=== PATIENT | female | born 1990 | race Hispanic/Latino ===

== ENCOUNTER 2017-05-14 21:15 | Emergency (ER) | payer OTHER ==
[~2017-05-14] VITALS: Ht 167.6 cm; Wt 84.1 kg
[~2017-05-14 21:15] MED LIST: CIPRO500 MG PO; DICYCLOMINE HCL10 MG PO; DOCUSATE SODIU100 MG PO; ENDOCET 5-3251 EACH PO; IBUPROFEN800 MG PO; IMODIUM MS REL1 EACH PO; LOMOTIL TABLET1 EACH PO; LOVENOX40 MG/0.4 SC; MICRONOR0.35 MG PO; Motrin PO; NEXIUM40 MG PO; NOHOMEMEDS; PEPCID20 MG PO; PHENERGAN25 MG PR; PRENATAL TABLE1 EACH PO; PROMETHAZINE HC25 M1 PO; PROTONIX20 MG PO; PROTONIX40 MG PO; REGLAN10 MG PO; SUCRALFATE1 GM PO; TRAMADOL HCL50 MG PO; ULTRAM50 MG PO; VITAMIN D1000 INTUN PO; ZANTAC150 MG PO; ZOFRAN ODT4 MG PO; ZOFRAN ODT8 MG PO; ZOFRAN4 MG PO
[2017-05-14 22:00] LABS: HEMATOCRIT 38.1 % (36.0-46.0); MCH 28.9 PG (29.0-34.0); MCHC 32.3 G/DL (30.0-36.0); MCV 89.6 FL (83-99); PLATELET COUNT 354 K/uL (156-360); RBC DIS.WIDTH-SD 49.4 % (39-53); RED BLOOD COUNT 4.25 M/uL (3.80-5.20)
[2017-05-14 22:08] LABS: CHLORIDE 106 mEq/L (99-109); POTASSIUM 3.2 mEq/L (3.7-5.4); SODIUM 138 mEq/L (136-147)
[2017-05-14 22:10] LABS: GLUCOSE 83 mg/dL (70-99)
[2017-05-14 22:12] LABS: ANION GAP 11 MEQ/L (2-14)
[2017-05-14 22:14] LABS: GFR ESTIMATE (CALCULATED) > 59 mL/min/
[2017-05-14 22:15] LABS: UREA NITROGEN (BUN) 9 mg/dL (9-23)
[2017-05-14 22:20] LABS: TROP-I INTERPRETATION NEGATIVE; TROPONIN-I < 0.01 ng/mL (0.0-0.30)
[2017-05-14 22:56] LABS: QUANTITATIVE HCG 1110.3 MIU/ML
[2017-05-14] MEDS ORDERED: PROAIR HFA8.5 GM IH (23:03)
[2017-05-14] MEDS ORDERED: ZOFRAN ODT4 MG PO (23:03)
[2017-05-14] MEDS ORDERED: PRENATAL TABLE1 EAC3 PO (23:03)
[2017-05-14 23:43] VITALS: BP 101/68
== END 2017-05-14 23:45 | disposition home or self-care (01) ==
LOC: EME 21:15
DX: O26.891 Other specified pregnancy related conditions, first trimester (principal); J20.9 Acute bronchitis, unspecified; J45.909 Unspecified asthma, uncomplicated; Z3A.00 Weeks of gestation of pregnancy not specified; Z87.891 Personal history of nicotine dependence
CPT/HCPCS: 71020; 80048; 84484; 84702; 85027; 87651 90; 93005; 94640; 99281; 99284; J7512

== ENCOUNTER 2017-05-16 23:55 | Emergency (ER) | payer OTHER ==
[~2017-05-16] VITALS: Ht 167.6 cm; Wt 80.4 kg
[~2017-05-16 23:55] MED LIST changes: +PRENATAL TABLE1 EAC3 PO; +PROAIR HFA8.5 GM IH
[2017-05-17 01:37] LABS: EOSINOPHIL (%) 0.2 % (0-5); HEMATOCRIT 39.9 % (36.0-46.0); IMMATURE GRANULOCYTE (%) 0.4 % (0.0-0.7); LYMPHOCYTE COUNT 1.5 K/uL (1.0-2.8); MCH 28.4 PG (29.0-34.0); MCHC 32.1 G/DL (30.0-36.0); MCV 88.5 FL (83-99); MEAN PLAT.VOLUME 9.9 uM^3 (9.5-12.4); MONOCYTE (%) 9.5 % (3-12); MONOCYTE COUNT 0.8 K/uL (0-0.8); NEUTROPHIL (%) 71.9 % (45-76); PLATELET COUNT 405 K/uL (156-360); RBC DIS.WIDTH-CV 14.8 % (11.8-14.6); RBC DIS.WIDTH-SD 47.8 % (39-53); RED BLOOD COUNT 4.51 M/uL (3.80-5.20); WHITE BLOOD COUNT 8.4 K/uL (4.1-10.2)
[2017-05-17 01:54] LABS: CHLORIDE 101 mEq/L (99-109); POTASSIUM 3.1 mEq/L (3.7-5.4); SODIUM 139 mEq/L (136-147)
[2017-05-17 01:56] LABS: GLUCOSE 102 mg/dL (70-99)
[2017-05-17 01:57] LABS: ANION GAP 12 MEQ/L (2-14)
[2017-05-17 01:58] LABS: TOTAL BILIRUBIN 1.7 mg/dL (0.0-1.0)
[2017-05-17 02:00] LABS: ALKALINE PHOSPHATASE 53 IU/L (3-129); GFR ESTIMATE (CALCULATED) > 59 mL/min/
[2017-05-17 02:01] LABS: UREA NITROGEN (BUN) 18 mg/dL (9-23)
[2017-05-17 02:02] LABS: DIRECT BILIRUBIN 0.5 mg/dL (0.0-0.3)
[2017-05-17 02:03] LABS: LIPASE 9 U/L (1.0-51.0)
[2017-05-17 02:12] LABS: QUANTITATIVE HCG 2278.2 MIU/ML
[2017-05-17 02:41] LABS: ADD MIUA? YES; BILIRUBIN SMALL; BLOOD NEGATIVE; COLOR AMBER ((YELLOW)); GLUCOSE (STRIP) NEGATIVE; KETONES 5; LEUKOCYTES NEGATIVE; NITRITE NEGATIVE; PROTEIN (STRIP) 100; SPECIFIC GRAVITY 1.033 (1.000-1.030)
[2017-05-17 02:48] LABS: BACTERIA 2+ /HPF; EPITHELIAL CELLS 1+ /HPF; HYALINE CASTS 20-30 /LPF; MUCUS 4+ /LPF; UCUL ADDED? YES
[2017-05-17] MEDS ORDERED: ZOFRAN4 MG PO (03:24)
[2017-05-17] MEDS ORDERED: MACROBID100 MG PO (04:16)
[2017-05-17 05:30] VITALS: BP 113/70
== END 2017-05-17 06:16 | disposition home or self-care (01) ==
LOC: EME 23:55
PROVIDERS: Emergency Medicine
DX: O99.89 Other specified diseases and conditions complicating pregnancy, childbirth and the puerperium (principal); R10.12 Left upper quadrant pain; O21.1 Hyperemesis gravidarum with metabolic disturbance; E86.0 Dehydration; E87.6 Hypokalemia; O99.511 Diseases of the respiratory system complicating pregnancy, first trimester; J45.909 Unspecified asthma, uncomplicated; Z3A.01 Less than 8 weeks gestation of pregnancy; Z87.891 Personal history of nicotine dependence
CPT/HCPCS: 80048; 80076; 81003; 83690; 84702; 85025; 87086; 99281; 99285; J1200; J2405; J2765; J3480; J7030

== ENCOUNTER 2018-01-06 16:17 | Inpatient (IN) | payer OTHER ==
[~2018-01-06] VITALS: Ht 167.6 cm; Wt 83.9 kg
[2018-01-06] VITALS (9 sets, daily range): BP systolic 107–132; BP diastolic 53–81
[~2018-01-06 16:17] MED LIST changes: +MACROBID100 MG PO
[2018-01-06 17:20] LABS: BASOPHIL (%) 0.4 % (0-1); EOSINOPHIL (%) 0.7 % (0-5); EOSINOPHIL COUNT 0.1 K/uL (0-0.3); HEMATOCRIT 29.3 % (36.0-46.0); HEMOGLOBIN 9.2 G/DL (11.9-15.5); IMMATURE GRANULOCYTE (%) 0.5 % (0.0-0.7); LYMPHOCYTE (%) 19.8 % (15-42); LYMPHOCYTE COUNT 2.2 K/uL (1.0-2.8); MCH 26.4 PG (29.0-34.0); MCHC 31.4 G/DL (30.0-36.0); MCV 84.2 FL (83-99); MONOCYTE (%) 5.6 % (3-12); MONOCYTE COUNT 0.6 K/uL (0-0.8); PLATELET COUNT 405 K/uL (156-360); RBC DIS.WIDTH-CV 14.4 % (11.8-14.6); RBC DIS.WIDTH-SD 43.9 % (39-53); RED BLOOD COUNT 3.48 M/uL (3.80-5.20)
[2018-01-06 19:49] LABS: AMPHETAMINE NEGATIVE (500 ng/mL); BARBITURATES NEGATIVE (200 ng/mL); BENZODIAZEPINES NEGATIVE (150 ng/mL); BUPRENORPHINE NEGATIVE (10 ng/mL); COCAINE PRESUMPTIVE POSITIVE (150 ng/mL); METHADONE NEGATIVE (200 ng/mL); METHAMPHETAMINE NEGATIVE (500 ng/mL); OPIATES (MORPHINE) NEGATIVE (100 ng/mL); OXYCODONE NEGATIVE (100 ng/mL); PHENCYCLIDINE NEGATIVE (25 ng/mL); PROPOXYPHENE NEGATIVE (300 ng/mL); THC CANNABINOIDS PRESUMPTIVE POSITIVE (50 ng/mL); TRICYCLIC ANTIDEPRESSANTS NEGATIVE (300 ng/mL)
[2018-01-07 06:37] LABS: BASOPHIL (%) 0.3 % (0-1); EOSINOPHIL (%) 0.5 % (0-5); EOSINOPHIL COUNT 0.1 K/uL (0-0.3); HEMOGLOBIN 7.8 G/DL (11.9-15.5); IMMATURE GRANULOCYTE (%) 0.5 % (0.0-0.7); LYMPHOCYTE (%) 18.1 % (15-42); MCH 25.7 PG (29.0-34.0); MCV 85.8 FL (83-99); MONOCYTE (%) 5.6 % (3-12); MONOCYTE COUNT 0.6 K/uL (0-0.8); NEUTROPHIL COUNT 8.1 K/uL (1.8-6.4); RBC DIS.WIDTH-CV 14.2 % (11.8-14.6); RBC DIS.WIDTH-SD 44.1 % (39-53); RED BLOOD COUNT 3.03 M/uL (3.80-5.20); WHITE BLOOD COUNT 10.8 K/uL (4.1-10.2)
[2018-01-07 07:22] LABS: PLAT.SUFFICIENCY ADEQUATE; PLATELET COUNT 317 K/uL (156-360)
[2018-01-07 08:07] VITALS: BP 116/50
[2018-01-07] MEDS ORDERED: FERROCITE324 MG PO (12:26)
[2018-01-07] MEDS ORDERED: COLACE100 MG PO (12:26)
[2018-01-07] MEDS ORDERED: CAMILA0.35 MG PO (12:26)
[2018-01-07 14:40] VITALS: BP 131/68
== END 2018-01-07 22:17 | disposition home or self-care (01) | DRG 775 ==
LOC: LDRP-OP → 2WEST 16:18 → LDRP-OP 02-13 09:00
PROVIDERS: Advanced Practice Midwife
DX: O99.02 Anemia complicating childbirth (principal); Z37.0 Single live birth; D62 Acute posthemorrhagic anemia; Z3A.38 38 weeks gestation of pregnancy; Z87.891 Personal history of nicotine dependence
CPT/HCPCS: 84999; 85025; J0595; J7120

== ENCOUNTER 2018-04-04 08:51 | Day surgery (SDC) | payer OTHER ==
[~2018-04-04] VITALS: Ht 167.6 cm; Wt 70.8 kg
[~2018-04-04 08:51] MED LIST changes: +CAMILA0.35 MG PO; +COLACE100 MG PO; +FERROCITE324 MG PO; +TYLENOL EXTRA500 MG PO; +VENTOLIN HFA18 GM IH; +WOMEN'S MULTI200 MCG PO
== END 2018-04-04 09:23 | disposition home or self-care (01) ==
LOC: SDC 08:51
DX: Z30.2 Encounter for sterilization (principal); Z53.09 Procedure and treatment not carried out because of other contraindication; R11.11 Vomiting without nausea; R10.9 Unspecified abdominal pain
CPT/HCPCS: 84702; 85025; 86850; 86900; 86901; J1100; J2405; J2710; J7643

== ENCOUNTER 2018-04-12 15:58 | Inpatient (IN) | payer OTHER ==
[~2018-04-12] VITALS: Ht 167.6 cm; Wt 72.5 kg
[2018-04-12 16:33] LABS: HEMATOCRIT 34.1 % (36.0-46.0); HEMOGLOBIN 10.4 G/DL (11.9-15.5); MCH 25.3 PG (29.0-34.0); MCHC 30.5 G/DL (30.0-36.0); PLATELET COUNT 518 K/uL (156-360); RBC DIS.WIDTH-CV 17.9 % (11.8-14.6); RBC DIS.WIDTH-SD 54.4 % (39-53); RED BLOOD COUNT 4.11 M/uL (3.80-5.20); WHITE BLOOD COUNT 18.4 K/uL (4.1-10.2)
[2018-04-12 16:40] LABS: APPEARANCE CLOUDY ((CLEAR)); BILIRUBIN NEGATIVE; BLOOD LARGE; COLOR YELLOW ((YELLOW)); GLUCOSE (STRIP) NEGATIVE; KETONES NEGATIVE; LEUKOCYTES NEGATIVE; NITRITE NEGATIVE; PROTEIN (STRIP) 30; SPECIFIC GRAVITY 1.028 (1.000-1.030)
[2018-04-12 16:43] LABS: ALBUMIN 4.8 g/dL (3.2-4.8); CHLORIDE 107 mEq/L (99-109); POTASSIUM 3.4 mEq/L (3.7-5.4); SODIUM 144 mEq/L (136-147)
[2018-04-12 16:45] LABS: GLUCOSE 135 mg/dL (70-99); TOTAL PROTEIN 7.7 g/dL (6.4-8.3)
[2018-04-12 16:49] LABS: ALKALINE PHOSPHATASE 55 IU/L (3-129); CREATININE 0.8 mg/dL (0.6-1.3); GFR ESTIMATE (CALCULATED) > 59 mL/min/
[2018-04-12 16:50] LABS: UREA NITROGEN (BUN) 15 mg/dL (9-23)
[2018-04-12 16:51] LABS: AST (GOT) 13 IU/L (2-34)
[2018-04-12 16:52] LABS: ALT (GPT) 14 IU/L (3-49)
[2018-04-12 16:58] LABS: QUANTITATIVE HCG < 4.0 MIU/ML
[2018-04-12 17:02] LABS: LIPASE 16 U/L (1.0-51.0)
[2018-04-12 17:34] LABS: AMORPHOUS URATES CRYSTALS 1+; BACTERIA 2+ /HPF; EPITHELIAL CELLS RARE /HPF; HYALINE CASTS 0-5 /LPF; MUCUS 3+ /LPF; RED BLOOD CELLS RARE /HPF (0-5); UCUL ADDED? YES; WHITE BLOOD CELLS 0-5 /HPF (0-5)
[2018-04-12 23:20] VITALS: BP 107/55
[2018-04-13 03:07] VITALS: BP 102/51
[2018-04-13 06:17] LABS: HEMATOCRIT 26.6 % (36.0-46.0); MCH 24.8 PG (29.0-34.0); MCHC 30.5 G/DL (30.0-36.0); MCV 81.3 FL (83-99); PLATELET COUNT 383 K/uL (156-360); RBC DIS.WIDTH-CV 17.8 % (11.8-14.6); RBC DIS.WIDTH-SD 53.1 % (39-53)
[2018-04-13 06:18] LABS: HEMOGLOBIN 8.1 G/DL (11.9-15.5); RED BLOOD COUNT 3.27 M/uL (3.80-5.20)
[2018-04-13 06:22] LABS: CHLORIDE 108 MEQ/L (99-109); CREATININE 0.7 MG/DL (0.6-1.3); GFR ESTIMATE (CALCULATED) > 59 mL/min/; POTASSIUM 3.1 MEQ/L (3.7-5.4); SODIUM 140 MEQ/L (136-147); UREA NITROGEN (BUN) 10 mg/dL (9-23)
[2018-04-13 06:24] LABS: GLUCOSE 89 mg/dL (70-99)
[2018-04-13 07:17] VITALS: BP 104/59
[2018-04-13 12:17] VITALS: BP 92/52
[2018-04-13 16:10] VITALS: BP 92/58
[2018-04-13 19:52] VITALS: BP 104/63
[2018-04-13 23:42] VITALS: BP 102/60
[2018-04-14 07:35] VITALS: BP 110/55
[2018-04-14] MEDS ORDERED: BENTYL10 MG PO (12:03)
[2018-04-14] MEDS ORDERED: CIPRO500 MG PO (12:04)
[2018-04-14] MEDS ORDERED: FLAGYL500 MG PO (12:05)
[2018-04-14] MEDS ORDERED: ZOFRAN ODT4 MG PO (12:06)
== END 2018-04-14 13:14 | disposition home or self-care (01) | DRG 392 ==
LOC: EME 15:58 → EDOF 20:28 → ENRESERV 20:29 → 3EAST 22:05
PROVIDERS: Hospitalist
DX: K52.9 Noninfective gastroenteritis and colitis, unspecified (principal); J98.2 Interstitial emphysema; D72.829 Elevated white blood cell count, unspecified; F12.90 Cannabis use, unspecified, uncomplicated; Z90.49 Acquired absence of other specified parts of digestive tract; E87.6 Hypokalemia; B96.81 Helicobacter pylori [H. pylori] as the cause of diseases classified elsewhere; F17.200 Nicotine dependence, unspecified, uncomplicated
CPT/HCPCS: 74177; 74220; 80048; 80053; 81003; 82705; 83630; 83690; 84702; 85027; 87040; 87086; 87493; 87506; 99281; 99285; C9113; J0744; J1630; J1650; J1885; J2060; J2405; J2765; J3010; J7030; J7120; S0030

== ENCOUNTER → 2018-07-16 | Outpatient (CLI) | payer OTHER ==
[~2018-07-16] MED LIST changes: +BENTYL10 MG PO; +FLAGYL500 MG PO
== END | disposition home or self-care (01) ==
LOC: NUC 07:00
DX: R11.2 Nausea with vomiting, unspecified (principal)
CPT/HCPCS: 78264; A9541